=== PATIENT | female | born 1965 | race Caucasian/White ===

== ENCOUNTER 2024-12-14 11:15 | Observation (INO) | payer OTHER ==
[2024-12-14 12:44] LABS: ABSOLUTE IMMATURE GRANULOCYTES 0.01 x10^3/uL (0.0-0.031); BASOPHILS # 0.02 x10^3/uL (0.01-0.08); EOSINOPHIL % 3.3 % (0.7-5.8); EOSINOPHILS # 0.16 x10^3/uL (0.04-0.36); HEMATOCRIT 43.5 % (34.1-44.9); HEMOGLOBIN 14.5 g/dL (11.2-15.7); MCHC 33.3 g/dl (32.2-35.5); MEAN CELL VOLUME 88.4 fl (79.4-94.8); MEAN PLT VOLUME 9.2 fl (9.4-12.3); MONOCYTE # 0.35 x10^3/uL (0.24-0.86); MONOCYTE % 7.3 % (4.7-12.5); PLATELET COUNT 222 x10^3/uL (182-369); RDW 12.2 % (12.3-16.6)
[2024-12-14] MEDS ORDERED: ACETAMINOPHEN INJECTION 100 ML ONE (12:58)
[2024-12-14 13:03] LABS: POTASSIUM 4.9 mmol/L (3.5-5.1)
[2024-12-14] MEDS ORDERED: FAMOTIDINE 20 MG/50 ML IVPB 20 MG/50 ML MG IVPB ONE (13:04)
[2024-12-14 13:05] LABS: CALCIUM 9.9 mg/dL (8.5-10.1)
[2024-12-14 13:06] LABS: ALBUMIN 3.8 g/dl (3.4-5.0); BLOOD UREA NITROGEN 15.6 mg/dL (7-18)
[2024-12-14 13:09] LABS: CREATININE 1.1 mg/dL (0.55-1.3)
[2024-12-14 13:10] LABS: BILIRUBIN,TOTAL 1.1 mg/dL (0.2-1); TOT PROT 6.9 g/dl (6.4-8.2)
[2024-12-14] MEDS: SODIUM CHLORIDE 1,000 ML IV STA (13:37)
[2024-12-14] MEDS: ACETAMINOPHEN 1000 MG/100 ML BAG IVPB ONE (13:38)
[2024-12-14] MEDS: FAMOTIDINE 20 MG/50 ML IVPB 20 MG/50 ML MG IVPB ONE (13:39)
[2024-12-14] MEDS ORDERED: PIPERACILLIN/TAZOB 4.5 GM 4.5 GM/100 ML BAG IVPB ONE (13:53)
[2024-12-14] MEDS: PIPERACILLIN/TAZOB 4.5 GM 4.5 GM/100 ML BAG IVPB ONE (13:59)
[2024-12-14 15:21] LABS: EPI CELLS 7 /uL (0-25.1); HYALINE CASTS 1 /uL (0-3.1); URINE APPEARANCE CLEAR; URINE BACTERIA 15 /uL (0-1359); URINE BILIRUBIN NEGATIVE (NEGATIVE); URINE COLOR YELLOW; URINE GLUCOSE (UA) NEGATIVE (NEGATIVE); URINE KETONE TRACE (NEGATIVE); URINE LEUK ESTERASE TRACE (NEGATIVE); URINE NITRITE NEGATIVE (NEGATIVE); URINE PROTEIN NEGATIVE (NEGATIVE); URINE RBC 15 /uL (0-23.9); URINE UROBILINOGEN 0.2 mg/dL (0.2-1.0); URINE WBC 11 /uL (0-25.8)
[2024-12-14] MEDS: LACTATED RINGERS SOLUTION 1,000 ML/1,000 ML INFUS.BAG IV SCH (15:58)
[2024-12-14 16:01] LABS: HIV INTERPRETATION NEGATIVE (NEGATIVE)
[2024-12-14] MEDS ORDERED: ALBUTEROL SO4 2.5/IPRATROPIUM 0.5 INH SOL 3 ML VIAL.NEB. NEB PRN (17:29)
[2024-12-14 18:03] VITALS: BMI 23.1
[2024-12-14] MEDS: ACETAMINOPHEN 1000 MG/100 ML BAG IVPB PRN (20:27)
[2024-12-14] MEDS: ONDANSETRON 4 MG/2 ML VIAL IVPB PRN (20:38)
[2024-12-14] MEDS: PIPERACILLIN/TAZOB 3.375 GM 3.375 GM in DEXTROSE 5%-WATER - 50 ML IVPB SCH (21:51)
[2024-12-14] MEDS: FAMOTIDINE 20 MG/50 ML IVPB 20 MG/50 ML MG IVPB SCH (21:52)
[2024-12-15 00:39] LABS: HCV DIAGNOSTIC IN-HOUSE W/RFLX NON-REACTIVE (NONREACTIVE)
[2024-12-15 08:13] LABS: HEMATOCRIT 42.5 % (34.1-44.9); HEMOGLOBIN 14.1 g/dL (11.2-15.7); MCHC 33.2 g/dl (32.2-35.5); MEAN CELL VOLUME 89.5 fl (79.4-94.8); MEAN PLT VOLUME 9.8 fl (9.4-12.3); PLATELET COUNT 243 x10^3/uL (182-369); RDW 11.9 % (12.3-16.6)
[2024-12-15 08:18] LABS: POTASSIUM 3.9 mmol/L (3.5-5.1)
[2024-12-15 08:27] LABS: ALBUMIN 3.6 g/dl (3.4-5.0); BLOOD UREA NITROGEN 10.8 mg/dL (7-18); CALCIUM 9.6 mg/dL (8.5-10.1); MAGNESIUM 2.3 mg/dL (1.8-2.4)
[2024-12-15 08:30] LABS: CREATININE 1.2 mg/dL (0.55-1.3)
[2024-12-15 08:31] LABS: BILIRUBIN,TOTAL 1.4 mg/dL (0.2-1); TOT PROT 6.3 g/dl (6.4-8.2)
[2024-12-15] MEDS ORDERED: BUPIVACAINE HCL/PF 0.25% (2.5MG/ML) 10 ML VIAL ONE (13:47)
[2024-12-15] MEDS ORDERED: LIDOCAINE HCL/PF 2% SDV 5ML VIAL ONE (13:49)
[2024-12-15] MEDS ORDERED: KETOROLAC TROMETHAMINE 30 MG/1 ML VIAL ONE (13:49)
[2024-12-15] MEDS ORDERED: DEXAMETHASONE SOD PHOSPHATE 4 MG/1 ML VIAL ONE (13:49)
[2024-12-15] MEDS ORDERED: GLYCOPYRROLATE 0.2 MG/1 ML VIAL ONE (13:49)
[2024-12-15] MEDS ORDERED: PROPOFOL 20 ML ONE ×2 (13:51→14:41)
[2024-12-15] MEDS ORDERED: MIDAZOLAM HCL 2 MG/2 ML SINGLE DOSE VIAL ONE (13:52)
[2024-12-15] MEDS: BUPIVACAINE HCL/PF 0.25% (2.5MG/ML) 10 ML VIAL IJ ONE ×2 (14:49)
[2024-12-15] MEDS ORDERED: SUGAMMADEX SODIUM 200 MG/2 ML VIAL ONE (15:05)
[2024-12-15] MEDS ORDERED: ACETAMINOPHEN INJECTION 100 ML ONE (15:06)
[2024-12-15] MEDS ORDERED: oxyCODONE HCL 5 MG TABLET PO PRN (15:40)
[2024-12-15] MEDS ORDERED: ONDANSETRON 4 MG/2 ML VIAL IVPUSH PRN (15:43)
[2024-12-15] MEDS ORDERED: LACTATED RINGERS SOLUTION 1,000 ML IV SCH (15:45)
[2024-12-15] MEDS ORDERED: LACTATED RINGERS SOLUTION 1,000 ML/1,000 ML INFUS.BAG IV SCH (16:02)
[2024-12-15] MEDS: PIPERACILLIN/TAZOB 3.375 GM 3.375 GM in DEXTROSE 5%-WATER - 50 ML IVPB SCH (17:35)
[2024-12-15] MEDS ORDERED: PIPERACILLIN/TAZOB 3.375 GM 3.375 GM in DEXTROSE 5%-WATER - 50 ML IVPB SCH (18:00)
[2024-12-15] MEDS: ONDANSETRON 4 MG/2 ML VIAL IVPB PRN (19:31)
[2024-12-15] MEDS: oxyCODONE HCL 5 MG TABLET PO PRN (19:36)
[2024-12-15] MEDS: FAMOTIDINE 20 MG/50 ML IVPB 20 MG/50 ML MG IVPB SCH (21:13)
[2024-12-15] MEDS: ACETAMINOPHEN 1000 MG/100 ML BAG IVPB ONE (21:41)
[2024-12-15] MEDS: ONDANSETRON 4 MG/2 ML VIAL IVPUSH PRN (22:39)
[2024-12-16 03:46] VITALS: RESP 18
[2024-12-16] MEDS: ACETAMINOPHEN 1000 MG/100 ML BAG IVPB PRN (03:54)
[2024-12-16] MEDS: LEVOTHYROXINE NA 112 MCG TABLET (FP) PO SCH (06:18)
[2024-12-16] MEDS: oxyCODONE HCL 5 MG TABLET PO PRN (06:45)
[2024-12-16] MEDS ORDERED: LEVOTHYROXINE NA 112 MCG TABLET (FP) PO SCH (07:00)
[2024-12-16] MEDS ORDERED: oxyCODONE HCL 5 MG TABLET PO PRN (08:25)
[2024-12-16 09:11] LABS: ABSOLUTE IMMATURE GRANULOCYTES 0.04 x10^3/uL (0.0-0.031); HEMATOCRIT 38.6 % (34.1-44.9); HEMOGLOBIN 13.1 g/dL (11.2-15.7); MCHC 33.9 g/dl (32.2-35.5); MEAN CELL VOLUME 86.9 fl (79.4-94.8); MEAN PLT VOLUME 9.6 fl (9.4-12.3); MONOCYTE % 5.1 % (4.7-12.5); PLATELET COUNT 226 x10^3/uL (182-369); RDW 11.8 % (12.3-16.6)
[2024-12-16] MEDS: KETOROLAC TROMETHAMINE 15 MG/ML VIAL IVPUSH SCH (09:18)
[2024-12-16 09:31] LABS: POTASSIUM 4.2 mmol/L (3.5-5.1)
[2024-12-16 09:33] LABS: ALBUMIN 3.6 g/dl (3.4-5.0); CALCIUM 9.5 mg/dL (8.5-10.1); MAGNESIUM 2.1 mg/dL (1.8-2.4)
[2024-12-16 09:34] LABS: BLOOD UREA NITROGEN 9.5 mg/dL (7-18)
[2024-12-16 09:36] LABS: CREATININE 0.9 mg/dL (0.55-1.3)
[2024-12-16 09:38] LABS: TOT PROT 6.4 g/dl (6.4-8.2)
[2024-12-16] MEDS: ACETAMINOPHEN 1000 MG/100 ML BAG IVPB SCH (10:25)
[2024-12-16 15:36] VITALS: BP 119/72; PULSE 69; TEMP 97.9
[2024-12-16] MEDS ORDERED: PIPERACILLIN/TAZOB 3.375 GM 3.375 GM in DEXTROSE 5%-WATER - 50 ML IVPB SCH (21:00)
== END 2024-12-16 16:09 | disposition home or self-care (01) ==
LOC: JER 11:15 → JERBED 13:58 → INTOOBSV 13:58 → J8W 16:51
PROVIDERS: ADMIT Student in an Organized Health Care Education/Training Program; ATTEND Nurse Practitioner Acute Care
PROC: 3E033NZ Introduction of Analgesics, Hypnotics, Sedatives into Peripheral Vein, Percutaneous Approach (ICD-10-PCS; principal; 2024-12-14)
PROC: 3E033GC Introduction of Other Therapeutic Substance into Peripheral Vein, Percutaneous Approach (ICD-10-PCS; 2024-12-14)
PROC: 3E0333Z Introduction of Anti-inflammatory into Peripheral Vein, Percutaneous Approach (ICD-10-PCS; 2024-12-14)
PROC: 3E0337Z Introduction of Electrolytic and Water Balance Substance into Peripheral Vein, Percutaneous Approach (ICD-10-PCS; 2024-12-14)
PROC: 0FT44ZG Resection of Gallbladder, Percutaneous Endoscopic Approach, Hand-Assisted (ICD-10-PCS; 2024-12-14)
DX: K81.9 Cholecystitis, unspecified (principal); E03.9 Hypothyroidism, unspecified; F41.9 Anxiety disorder, unspecified; K27.9 Peptic ulcer, site unspecified, unspecified as acute or chronic, without hemorrhage or perforation; Q21.10 Atrial septal defect, unspecified; Q21.12 Patent foramen ovale
CPT/HCPCS: 36415; 76705-TC; 80053; 81003; 83690; 83735; 84484; 85025; 85027; 85730; 86803; 86850; 86900; 86901; 87086; 87389; 88304-TC; 93005; 93010; 93306-TC; 94760; 99285-25; G0378